=== PATIENT | male | born 1980 | race Hispanic/Latino ===

== ENCOUNTER 2017-02-10 09:55 | Emergency (ER) | payer OTHER ==
[2017-02-10 10:18] VITALS: BP 119/65
[2017-02-10] MEDS ORDERED: MORPHINE IV ONE ×2 (10:20→13:04)
[2017-02-10] MEDS ORDERED: NORCO 10/325 PO ONE (10:22)
--- NOTE | 2017-02-10 10:24 | Emergency Department Report ---
ED General Adult HPI - General Chief complaint: Extremity Injury, Upper Stated complaint: RT HAND LAC Time Seen by Provider: 02/10/17 10:06 Source: patient Mode of arrival: Stretcher Limitations: No Limitations - History of Present Illness Initial comments: is a 36-year-old male right hand dominant with Past Medical History Who Presents with Right Thumb Injury. Patient States That He Was Working and His Partner Pushed the Stretcher on His Right Thumb and a Crushed His Right Thumb. Patient States the Pain Is a 10 Out Of 10 and Is Worse with Movement and it is better with rest. Patient's hand has no hard signs of vascular injury patient is still able to feel his thumb. Onset of pain was a couple hours ago it was sudden sharp achy severe pain that radiates down his hand. - Related Data Previous Rx's Medication Instructions Recorded Last Taken Type Cephalexin [Keflex] 500 mg PO Q12HR #28 cap 02/10/17 Unknown Rx HYDROcodone/APAP 7.5-325 [[place] 1 each PO Q6HR PRN #15 tablet 02/10/17 Unknown Rx 7.5/325] Allergies Allergy/AdvReac Type Severity Reaction Status Date / Time No Known Allergies Allergy Unverified 02/10/17 10:19 ED Review of Systems ROS: Stated complaint: RT HAND LAC Other details as noted in HPI Constitutional: denies: chills, fever Eyes: denies: eye pain, eye discharge, vision change ENT: denies: ear pain, throat pain Respiratory: denies: cough, shortness of breath, wheezing Cardiovascular: denies: chest pain, palpitations Endocrine: no symptoms reported Gastrointestinal: denies: abdominal pain, nausea, diarrhea Genitourinary: denies: urgency, dysuria Musculoskeletal: as per HPI. denies: back pain, joint swelling, arthralgia Skin: denies: rash, lesions Neurological: denies: headache, weakness, paresthesias Psychiatric: denies: anxiety, depression Hematological/Lymphatic: denies: easy bleeding, easy bruising ED Past Medical Hx - Social History Smoking Status: Never Smoker Substance Use Type: None - Medications Home Medications: Home Medications Medication Instructions Recorded Confirmed Last Taken Type Cephalexin [Keflex] 500 mg PO Q12HR #28 cap 02/10/17 Unknown Rx HYDROcodone/APAP 7.5-325 [[place] 1 each PO Q6HR PRN #15 tablet 02/10/17 Unknown Rx 7.5/325] ED Physical Exam - General Limitations: No Limitations General appearance: alert, in no apparent distress - Head Head exam: Present: atraumatic, normocephalic - Eye Eye exam: Present: normal appearance - ENT ENT exam: Present: mucous membranes moist - Neck Neck exam: Present: normal inspection - Respiratory Respiratory exam: Present: normal lung sounds bilaterally. Absent: respiratory distress - Cardiovascular Cardiovascular Exam: Present: regular rate, normal rhythm. Absent: systolic murmur, diastolic murmur, rubs, gallop - GI/Abdominal GI/Abdominal exam: Present: soft, normal bowel sounds - Rectal Rectal exam: Present: deferred - Expanded Upper Extremity Exam Right General: Present: laceration Shoulder Exam: Present: normal inspection Upper Arm exam: Present: normal inspection Elbow exam: Present: normal inspection Forearm Wrist exam: Present: normal inspection Hand Wrist exam: Present: normal inspection Hand L/R Front: 1 - Positive: laceration (3 cm), nail injury (#), avulsion Neurosensory exam: Present: radial nerve intact, other Vascular: Present: radial pulse, ulnar pulse - Back Exam Back exam: Present: normal inspection - Neurological Exam Neurological exam: Present: alert, oriented X3 - Psychiatric Psychiatric exam: Present: normal affect, normal mood - Skin Skin exam: Present: warm, dry, normal color, other. Absent: rash ED Course Vital Signs 02/10/17 02/10/17 10:13 13:30 Temperature 97.7 F Pulse Rate 60 Respiratory 16 18 Rate Blood Pressure 119/65 Blood Pressure 119/65 [Left] O2 Sat by Pulse 100 Oximetry - Reevaluation(s) Reevaluation #1: 02/10/17 13:05 Patient is still having pain I'll give patient IV dose of Dilaudid and oral pain medication - Consultations Consultation #1: 02/10/17 15:[address] Nichole Orthopedic surgeon security professional about patient's [place] fracture and nailbed laceration patient will be able to follow-up in clinic and can go home with pain medication and keflex - Laceration /Wound Repair Right Distal Volar Hand Wound Location: upper extremity (right thumb) Wound Length (cm): 3 Wound's Depth, Shape: irregular, flap, nail-avulsed Wound Explored: no foreign body removed Irrigated w/ Saline (ccs): 1,000 Betadine Prep?: Yes Anesthesia: Lidocaine w/ Epi Volume Anesthetic (ccs): 20 Wound Debrided: minimal Wound Repaired With: sutures Number of Sutures: 6 Layer Closure?: Yes Deep Layer Suture Size/Type: 3:0, chromic (vicryl ) Number Deep Layer Sutures: 6 (nail bed repaired with dermabond ) Sterile Dressing Applied?: Yes Progress: finger splint placed and patient was splinted in extension ED Medical Decision Making - Lab Data Result diagrams: 02/10/17 10:36 02/10/17 10:36 Lab Results 02/10/17 02/10/17 Range/Units 10:36 10:36 WBC 9.2 (4.5-11.0) K/mm3 RBC 5.08 H (3.65-5.03) M/mm3 Hgb 16.2 H (11.8-15.2) gm/dl Hct 48.7 H (35.5-45.6) % MCV 96 H (84-94) fl MCH 32 (28-32) pg MCHC 33 (32-34) % RDW 12.5 L (13.2-15.2) % Plt Count 263 (140-440) K/mm3 Lymph % (Auto) 36.5 H (13.4-35.0) % [place] % (Auto) 8.7 H (0.0-7.3) % Eos % (Auto) 2.8 (0.0-4.3) % Baso % (Auto) 0.9 (0.0-1.8) % Lymph # 3.4 (1.2-5.4) K/mm3 [place] # 0.8 (0.0-0.8) K/mm3 Eos # 0.3 (0.0-0.4) K/mm3 Baso # 0.1 (0.0-0.1) K/mm3 Seg Neutrophils % 51.1 (40.0-70.0) % Seg Neutrophils # 4.7 (1.8-7.7) K/mm3 Sodium 141 (137-145) mmol/L Potassium 4.2 (3.6-5.0) mmol/L Chloride 102.0 (98-107) mmol/L Carbon Dioxide 24 (22-30) mmol/L Anion Gap 19 mmol/L BUN 8 L (9-20) mg/dL Creatinine 1.1 (0.8-1.5) mg/dL Estimated GFR > 60 ml/min BUN/Creatinine Ratio 7 % Glucose 96 (75-100) mg/dL Calcium 9.1 (8.4-10.2) mg/dL Total Bilirubin 0.50 (0.1-1.2) mg/dL AST 8 (5-40) units/L ALT 14 (7-56) units/L Alkaline Phosphatase 84 (35-129) units/L Total Protein 7.0 (6.3-8.2) g/dL Albumin 4.2 (3.9-5) g/dL Albumin/Globulin Ratio 1.5 % - Radiology Data Radiology results: report reviewed, image reviewed X-ray hand, on shows distal thumb phalanx fracture. - Medical Decision Making Chief medical diagnosis: [place] fracture Differential medical diagnosis: Crush injury, nail bed laceration I will give antibiotics, IV pain medicine, oral pain medication, x-ray, explore and I will irrigate the hand. Patient's right thumb has been irrigated explored and sutured back together with 3-0 Vicryl and nail bed laceration has been repaired with Dermabond. Patient's pain is better discussed with Dr. Nichole patient will follow-up in one week. Patient will be sent home with [facility] [place] [facility]. Discussed outpatient he agrees with plan. Additional verbal discharge instructions were given. Critical care attestation.: If time is entered above; I have spent that time in minutes in the direct care of this critically ill patient, excluding procedure time. ED Disposition Clinical Impression: Closed fracture of tuft of distal phalanx of right thumb Nailbed laceration, finger Qualifiers: Encounter type: initial encounter Qualified Code(s): S61.319A - Laceration without foreign body of unspecified finger with damage to nail, initial encounter Laceration of finger with damage to nail Qualifiers: Encounter type: initial encounter Finger: thumb Foreign body presence: without foreign body Laterality: right Qualified Code(s): S61.111A - Laceration without foreign body of right thumb with damage to nail, initial encounter Disposition: DC-01 TO HOME OR SELFCARE Is pt being admited?: No Does the pt Need Aspirin: No Condition: Stable Instructions: Toenail/Fingernail Removal (ED), Finger Laceration (ED) Prescriptions: Cephalexin [Keflex] 500 mg PO Q12HR #28 cap HYDROcodone/APAP 7.5-325 [[place] 7.5/325] 1 each PO Q6HR PRN #15 tablet PRN Reason: Pain Referrals: THANG NICHOLE MD [Staff Physician] - 3-5 Days
[2017-02-10] MEDS ORDERED: XYLOCAINE 1%/ EPI 1:100,000 INFILTRATI NR (11:00)
[2017-02-10 11:04] LABS: Basophils % (Auto) 0.9 % (0.0-1.8); Eosinophils % (Auto) 2.8 % (0.0-4.3); Hematocrit 48.7 % (35.5-45.6); Hemoglobin 16.2 gm/dl (11.8-15.2); Mean Corpuscular HGB Conc 33 % (32-34); Mean Corpuscular Hemoglobin 32 pg (28-32); Mean Corpuscular Volume 96 fl (84-94); Platelet Count 263 K/mm3 (140-440); Red Blood Count 5.08 M/mm3 (3.65-5.03); Red Cell Distribution Width 12.5 % (13.2-15.2); White Blood Count 9.2 K/mm3 (4.5-11.0)
--- NOTE | 2017-02-10 11:20 | XRay Report ---
Right hand 3 views. History: Pain after Trauma. Findings: There is a mildly comminuted fracture of the first distal phalanx with mild distraction of 2 small fragments. There is associated soft tissue swelling. There are no other significant findings.
[2017-02-10 11:28] LABS: Alanine Aminotransferase 14 units/L (7-56); Albumin 4.2 g/dL (3.9-5); Albumin/Globulin Ratio 1.5 %; Alkaline Phosphatase 84 units/L (35-129); Anion Gap 19 mmol/L; BUN/Creatinine Ratio 7; Blood Urea Nitrogen 8 mg/dL (9-20); Calcium 9.1 mg/dL (8.4-10.2); Carbon Dioxide 24 mmol/L (22-30); Glucose 96 mg/dL (75-100); Potassium 4.2 mmol/L (3.6-5.0); Sodium 141 mmol/L (137-145)
[2017-02-10] MEDS ORDERED: NACL 0.9% 500 ML IR ONE (12:14)
[2017-02-10] MEDS ORDERED: BOOSTRIX IM ONE (12:54)
[2017-02-10] MEDS ORDERED: KEFLEX PO ONE (12:55)
[2017-02-10] MEDS ORDERED: DILAUDID IV ONE (13:05)
[2017-02-10] MEDS ORDERED: NACL 0.9% 1,000 ML IR ONE (13:26)
== END 2017-02-10 15:53 | disposition home or self-care (01) ==
LOC: ED 09:55
DX: S62.521A Displaced fracture of distal phalanx of right thumb, initial encounter for closed fracture (principal); S61.111A Laceration without foreign body of right thumb with damage to nail, initial encounter; W23.1XXA Caught, crushed, jammed, or pinched between stationary objects, initial encounter; Y93.89 Activity, other specified; Y92.89 Other specified places as the place of occurrence of the external cause; Y99.8 Other external cause status
CPT/HCPCS: 11760; 29125; 36415; 73120; 80053; 85025; 90471; 90715; 96374; 96375; 99284; J1170; J2270